=== PATIENT | female | born 1930 | race African-American/Black ===

== ENCOUNTER 2019-04-23 11:29 | Inpatient (IN) | payer OTHER ==
[2019-04-23] VITALS (18 sets, daily range): BP systolic 90–151; BP diastolic 14–97
[~2019-04-23] VITALS: Ht 157.5 cm; Wt 67.2 kg
[2019-04-23] MEDS ORDERED: SODIUM CHLORIDE 0.9% 500 ML IV ONE (12:19)
[2019-04-23 13:03] LABS: BASOPHILS % 0.3 % (0.0-2.0); LYMPHOCYTES % 8.7 % (20.0-50.0); MEAN CORPUSCULAR HEMOGLOBIN 17.3 pg (28.0-32.0); MEAN CORPUSCULAR VOLUME 60.9 fL (81.0-99.0); MEAN PLATELET VOLUME 8.6 fl (7.4-10.4); PLATELET 244 x1000/uL (130-400); RED BLOOD CELL COUNT 2.57 mill/uL (4.2-5.4); RED CELL DISTRIBUTION WIDTH 19.3 % (11.6-14.6)
[2019-04-23 13:07] LABS: CHLORIDE 117 mEq/L (98-107); INR 1.4; PROTHROMBIN TIME 14.1 sec (9.6-11.0)
[2019-04-23 13:12] LABS: HEMATOCRIT. 15.7 % (36.0-48.0); HEMOGLOBIN. 4.5 g/dL (12.0-16.0)
[2019-04-23 13:27] LABS: PLATELET ESTIMATE NORMAL
[2019-04-23] MEDS ORDERED: LORAZEPAM 2MG/ML CPJ IV ONE (13:30)
[2019-04-23] MEDS ORDERED: POTASSIUM CHLORIDE INJ 40 MEQ in DEXT 5% WATER 250 ML IV NR (14:30)
[2019-04-23 15:44] LABS: TOTAL IRON BINDING CAPACITY 286 ug/dL (250-450)
[2019-04-23] MEDS ORDERED: CLONIDINE 0.1MG TABLET PO PRN (16:00)
[2019-04-23] MEDS ORDERED: IPRATROPIUM/ALBUTEROL 0.5-3(2.5)MG/3ML NEB NEB PRN (16:00)
[2019-04-23] MEDS ORDERED: DEXTROSE 50% WATER 50ML SYRINGE IV PRN (16:00)
[2019-04-23] MEDS ORDERED: NITROGLYCERIN 0.4MG TABLET SL SL PRN (16:00)
[2019-04-23] MEDS ORDERED: ONDANSETRON HCL 4MG/2ML INJ IV PRN (16:00)
[2019-04-23] MEDS ORDERED: PANTOPRAZOLE SODIUM 40 MG/VIAL IV NR (16:00)
[2019-04-23] MEDS ORDERED: GUAIFENESIN 200MG/10ML SUGAR FREE UDC PO PRN (16:00)
[2019-04-23] MEDS ORDERED: DOCUSATE SODIUM 100MG CAPSULE PO PRN (16:00)
[2019-04-23] MEDS ORDERED: LORAZEPAM 0.5MG TABLET PO PRN (16:00)
[2019-04-23] MEDS ORDERED: MAGNESIUM/ALUMINUM HYDROXIDE/SIMETHICONE 30ML UDC PO PRN (16:00)
[2019-04-23] MEDS: DEXT 5%/LACTATED RINGERS 1,000 ML IV SCH (17:57)
[2019-04-23] MEDS: BLOOD SUGAR DIAGNOSTIC STRIP TEST SCH ×2 (17:57→21:00)
[2019-04-23] MEDS: INSULIN LISPRO 100 UNITS/ML SUBCUT SCH ×2 (17:58→23:30)
[2019-04-23] MEDS ORDERED: PANTOPRAZOLE 80 MG in SODIUM CHLORIDE 0.9% 100 ML IV SCH ×2 (18:00→23:30)
[2019-04-23] MEDS ORDERED: TRAMADOL 50MG TABLET PO PRN (18:00)
[2019-04-23] MEDS ORDERED: AZITHROMYCIN 500 MG in DEXT 5% WATER 250 ML IV SCH (18:00)
[2019-04-23] MEDS ORDERED: CEFTRIAXONE 1 G PREMIX 50 ML IV SCH (20:00)
[2019-04-23] MEDS ORDERED: ZOLPIDEM TARTRATE 5MG TABLET PO PRN (21:00)
[2019-04-23 21:12] LABS: T4 FREE 1.57 ng/dL (0.76-1.46)
[2019-04-23 21:26] LABS: FERRITIN 16 ng/mL (10-291)
[2019-04-23 21:36] LABS: VITAMIN B12 SERUM >2000 pg/mL pg/mL (211-911)
[2019-04-23 21:37] LABS: HEPATITIS B SURFACE ANTIGEN NEGATIVE
[2019-04-23 22:07] LABS: HEPATITIS A AB IGM NEGATIVE (NEGATIVE)
[2019-04-23] MEDS ORDERED: IOHEXOL-350 100 ML BOTTLE ONE (22:31)
[2019-04-23] MEDS ORDERED: KCL 20MEQ/100ML PREMIX 100 ML IV NR (23:00)
[2019-04-24] VITALS (62 sets, daily range): BP systolic 87–154; BP diastolic 42–104
[2019-04-24 03:57] LABS: BASOPHILS % 0.3 % (0.0-2.0); EOSINOPHILS % 1.1 % (0.0-5.0); HEMATOCRIT. 22.5 % (36.0-48.0); HEMOGLOBIN. 7.1 g/dL (12.0-16.0); LYMPHOCYTES % 7.4 % (20.0-50.0); MEAN CORPUSCULAR HEMOGLOBIN 21.6 pg (28.0-32.0); MEAN CORPUSCULAR VOLUME 68.3 fL (81.0-99.0); MEAN PLATELET VOLUME 9.2 fl (7.4-10.4); MONOCYTES % 9.6 % (2.0-8.0); NEUTROPHILS % 81.6 % (40.0-76.0); PLATELET 182 x1000/uL (130-400); RED BLOOD CELL COUNT 3.29 mill/uL (4.2-5.4); RED CELL DISTRIBUTION WIDTH 28.7 % (11.6-14.6)
[2019-04-24 04:42] LABS: CHLORIDE 120 mEq/L (98-107)
[2019-04-24 04:50] LABS: PHOSPHORUS 3.2 mg/dL (2.5-4.9)
[2019-04-24 04:52] LABS: CREATINE KINASE 534 IU/L (26-192)
[2019-04-24 04:54] LABS: CREATINE KINASE MB FRACTION 52.3 ng/mL (0.5-3.6)
[2019-04-24 06:03] LABS: HEMATOCRIT 24.3 % (36.0-48.0); HEMOGLOBIN 7.6 g/dL (12.0-16.0)
[2019-04-24 06:20] LABS: CREATINE KINASE MB FRACTION 57.5 ng/mL (0.5-3.6)
[2019-04-24] MEDS: DEXT 5%/LACTATED RINGERS 1,000 ML IV SCH (06:22)
[2019-04-24] MEDS: BLOOD SUGAR DIAGNOSTIC STRIP TEST SCH ×4 (08:19→21:19)
[2019-04-24] MEDS: INSULIN LISPRO 100 UNITS/ML SUBCUT SCH ×4 (08:20→21:00)
[2019-04-24] MEDS ORDERED: DIATR MEGLU/DIATRIZOATE SOLN 30ML PO SCH (10:00)
[2019-04-24] MEDS: PANTOPRAZOLE SODIUM 40 MG/VIAL IV SCH (10:06)
[2019-04-24] MEDS: FERROUS SULFATE 325MG TABLET PO SCH ×2 (13:20→17:31)
[2019-04-24] MEDS ORDERED: IOHEXOL-300 100 ML BOTTLE ONE ×2 (13:33→22:32)
[2019-04-24] MEDS ORDERED: LIDOCAINE HCL 1% 20ML VIAL (Pyxis) INJ ONE (13:33)
[2019-04-24] MEDS ORDERED: SODIUM BICARBONATE 4% (2.4MEQ) 5ML VIAL IV ONE (13:33)
[2019-04-24] MEDS ORDERED: IOHEXOL-300 50 ML BOTTLE IV ONE (13:39)
[2019-04-24 16:28] LABS: HEMATOCRIT 24.1 % (36.0-48.0); HEMOGLOBIN 7.6 g/dL (12.0-16.0)
[2019-04-24] MEDS: CEFTRIAXONE 1 G PREMIX 50 ML IV SCH (18:18)
[2019-04-24] MEDS: ATORVASTATIN CALCIUM 40MG TABLET PO SCH (21:01)
[2019-04-24] MEDS: AZITHROMYCIN 500 MG in DEXT 5% WATER 250 ML IV SCH (21:01)
[2019-04-24] MEDS: METOPROLOL TARTRATE 25MG TABLET PO SCH (21:02)
[2019-04-25] VITALS (82 sets, daily range): BP systolic 74–134; BP diastolic 20–78
[2019-04-25] MEDS: DEXT 5%/LACTATED RINGERS 1,000 ML IV SCH ×2 (01:48→09:23)
[2019-04-25] MEDS: BLOOD SUGAR DIAGNOSTIC STRIP TEST SCH ×4 (07:50→21:00)
[2019-04-25 08:14] LABS: HEMATOCRIT. 22.7 % (36.0-48.0); MEAN CORPUSCULAR HEMOGLOBIN 20.9 pg (28.0-32.0); MEAN CORPUSCULAR VOLUME 69.9 fL (81.0-99.0); MEAN PLATELET VOLUME 9.3 fl (7.4-10.4); PLATELET 169 x1000/uL (130-400); RED BLOOD CELL COUNT 3.25 mill/uL (4.2-5.4)
[2019-04-25 08:19] LABS: CHLORIDE 122 mEq/L (98-107)
[2019-04-25 08:23] LABS: HEMOGLOBIN. 6.8 g/dL (12.0-16.0)
[2019-04-25] MEDS: METOPROLOL TARTRATE 25MG TABLET PO SCH ×2 (09:00→20:39)
[2019-04-25] MEDS: PANTOPRAZOLE SODIUM 40 MG/VIAL IV SCH (09:23)
[2019-04-25] MEDS: FERROUS SULFATE 325MG TABLET PO SCH (09:23)
[2019-04-25] MEDS: INSULIN LISPRO 100 UNITS/ML SUBCUT SCH ×4 (09:37→21:00)
[2019-04-25] MEDS ORDERED: NON FORMULARY PATIENT HOME MED XX SCH (11:30)
[2019-04-25] MEDS ORDERED: IRON SUCROSE COMPLEX 100 MG/5 ML ML IV SCH (12:45)
[2019-04-25 13:19] LABS: NUCLEATED RED BLOOD CELLS 7 /100 WBC; PLATELET ESTIMATE NORMAL
[2019-04-25 15:23] LABS: CLARITY URINE CLEAR (CLEAR); COLOR URINE YELLOW (YELLOW); KETONES URINE NEGATIVE (NEGATIVE); LEUKOCYTE ESTERASE URINE TRACE (NEGATIVE); NITRITE URINE NEGATIVE (NEGATIVE); OCCULT BLOOD URINE 3+ (NEGATIVE); PROTEIN URINE 1+ (NEGATIVE); SPECIFIC GRAVITY URINE 1.046 (1.005-1.030)
[2019-04-25] MEDS: DEXT 5%/0.2% NACL 1,000 ML IV SCH ×2 (16:18→23:53)
[2019-04-25] MEDS: CEFTRIAXONE 1 G PREMIX 50 ML IV SCH (19:05)
[2019-04-25] MEDS ORDERED: LACTULOSE 20G/30ML UDC PO PRN (19:30)
[2019-04-25] MEDS ORDERED: LACTULOSE 20G/30ML UDC PO NR (19:30)
[2019-04-25] MEDS: AZITHROMYCIN 500 MG in DEXT 5% WATER 250 ML IV SCH (20:26)
[2019-04-25 20:35] LABS: HEMATOCRIT 30.6 % (36.0-48.0); HEMOGLOBIN 9.7 g/dL (12.0-16.0)
[2019-04-25] MEDS: ATORVASTATIN CALCIUM 40MG TABLET PO SCH (20:39)
[2019-04-25] MEDS: ACETAMINOPHEN 325MG TABLET PO PRN (20:42)
[2019-04-26] VITALS (56 sets, daily range): BP systolic 73–121; BP diastolic 38–85
[2019-04-26] MEDS: INSULIN LISPRO 100 UNITS/ML SUBCUT SCH ×3 (06:05→17:31)
[2019-04-26] MEDS: BLOOD SUGAR DIAGNOSTIC STRIP TEST SCH ×3 (06:05→17:31)
[2019-04-26 06:32] LABS: HEMOGLOBIN. 10.1 g/dL (12.0-16.0); MEAN CORPUSCULAR HEMOGLOBIN 23.7 pg (28.0-32.0); MEAN CORPUSCULAR VOLUME 74.8 fL (81.0-99.0); RED BLOOD CELL COUNT 4.28 mill/uL (4.2-5.4); RED CELL DISTRIBUTION WIDTH 29.6 % (11.6-14.6)
[2019-04-26] MEDS: PANTOPRAZOLE SODIUM 40 MG/VIAL IV SCH (08:24)
[2019-04-26] MEDS: IRON SUCROSE COMPLEX 100 MG/5 ML ML IV SCH (08:24)
[2019-04-26] MEDS: METOPROLOL TARTRATE 25MG TABLET PO SCH ×2 (08:25→21:00)
[2019-04-26 09:53] LABS: NUCLEATED RED BLOOD CELLS 8 /100 WBC
[2019-04-26 09:54] LABS: PLATELET ESTIMATE DECREASED
[2019-04-26 09:55] LABS: MEAN PLATELET VOLUME 8.8 fl (7.4-10.4)
[2019-04-26 09:56] LABS: PLATELET 108 x1000/uL (130-400)
[2019-04-26] MEDS: CEFTRIAXONE 1 G PREMIX 50 ML IV SCH (17:31)
[2019-04-26] MEDS: DEXT 5%/0.2% NACL 1,000 ML IV SCH (17:31)
[2019-04-26] MEDS: AZITHROMYCIN 500 MG in DEXT 5% WATER 250 ML IV SCH (20:36)
[2019-04-26] MEDS: ACETAMINOPHEN 325MG TABLET PO PRN (20:36)
[2019-04-26] MEDS: ATORVASTATIN CALCIUM 40MG TABLET PO SCH (20:36)
[2019-04-27] VITALS (52 sets, daily range): BP systolic 83–119; BP diastolic 15–79
[2019-04-27] MEDS: INSULIN LISPRO 100 UNITS/ML SUBCUT SCH ×4 (00:21→17:49)
[2019-04-27] MEDS: BLOOD SUGAR DIAGNOSTIC STRIP TEST SCH ×4 (00:22→17:48)
[2019-04-27] MEDS: DEXT 5%/0.2% NACL 1,000 ML IV SCH ×2 (06:10→19:36)
[2019-04-27] MEDS: METOPROLOL TARTRATE 25MG TABLET PO SCH ×2 (08:56→20:21)
[2019-04-27] MEDS: PANTOPRAZOLE SODIUM 40 MG/VIAL IV SCH (08:57)
[2019-04-27] MEDS: IRON SUCROSE COMPLEX 100 MG/5 ML ML IV SCH (08:57)
[2019-04-27 10:38] LABS: BG BASE EXCESS -3.6 mmol/L (-2.0-2.0); BG CARBOXYHEMOGLOBIN 0.3 % (0.5-1.5); BG DEOXYHEMOGLOBIN 1.6 % (0.0-5.0); BG FRACTION INSPIRED OXYGEN 36; BG HCO3 ACT 19.7 mmol/L (22.0-26.0); BG OXYGEN SATURATION 98.4 % (92.0-98.5); BG OXYHEMOGLOBIN 98.1 % (94.0-97.0); BG PH 7.436 (7.350-7.450); BG PO2 133.7 mmHg (75.0-100.0); BG SAMPLE SITE RIGHT RADIAL; BG TOTAL HEMOGLOBIN 10.3 g/dL (12.0-18.0); BG VENT MODE NASAL CANNULA
[2019-04-27] MEDS: CEFTRIAXONE 1 G PREMIX 50 ML IV SCH (18:47)
[2019-04-27] MEDS: AZITHROMYCIN 500 MG in DEXT 5% WATER 250 ML IV SCH (19:41)
[2019-04-27] MEDS: ATORVASTATIN CALCIUM 40MG TABLET PO SCH (20:00)
[2019-04-27 22:20] LABS: HEMATOCRIT 30.6 % (36.0-48.0); HEMOGLOBIN 9.7 g/dL (12.0-16.0)
[2019-04-28] VITALS (11 sets, daily range): BP systolic 74–110; BP diastolic 49–68
[2019-04-28] MEDS: INSULIN LISPRO 100 UNITS/ML SUBCUT SCH
[2019-04-28] MEDS: BLOOD SUGAR DIAGNOSTIC STRIP TEST SCH
== END 2019-04-28 03:30 | disposition short-term general hospital (02) | DRG 252 ==
LOC: ER 11:29 → CVICU 14:09 → EDBEDREQSVC 14:11 → EDBEDREQTM 14:11 → EDBEDREQ 14:11 → ENRESERV 15:46
PROVIDERS: ADMIT Internal Medicine; ATTEND Internal Medicine
PROC: 30233N1 Transfusion of Nonautologous Red Blood Cells into Peripheral Vein, Percutaneous Approach (ICD-10-PCS; principal; 2019-04-23)
PROC: 06H03DZ Insertion of Intraluminal Device into Inferior Vena Cava, Percutaneous Approach (ICD-10-PCS; 2019-04-24)
PROC: B5191ZZ Fluoroscopy of Inferior Vena Cava using Low Osmolar Contrast (ICD-10-PCS; 2019-04-24)
PROC: 06HC33Z Insertion of Infusion Device into Right Common Iliac Vein, Percutaneous Approach (ICD-10-PCS; 2019-04-24)
PROC: B54BZZA Ultrasonography of Right Lower Extremity Veins, Guidance (ICD-10-PCS; 2019-04-24)
DX: I21.3 ST elevation (STEMI) myocardial infarction of unspecified site (principal); J96.00 Acute respiratory failure, unspecified whether with hypoxia or hypercapnia; E43 Unspecified severe protein-calorie malnutrition; I26.99 Other pulmonary embolism without acute cor pulmonale; G92 Toxic encephalopathy; I82.411 Acute embolism and thrombosis of right femoral vein; D62 Acute posthemorrhagic anemia; E87.0 Hyperosmolality and hypernatremia; D68.9 Coagulation defect, unspecified; D68.59 Other primary thrombophilia; E87.1 Hypo-osmolality and hyponatremia; K92.2 Gastrointestinal hemorrhage, unspecified; I82.431 Acute embolism and thrombosis of right popliteal vein; I82.432 Acute embolism and thrombosis of left popliteal vein; D50.9 Iron deficiency anemia, unspecified; E11.65 Type 2 diabetes mellitus with hyperglycemia; E83.51 Hypocalcemia; E87.5 Hyperkalemia; E87.6 Hypokalemia; R74.0 Nonspecific elevation of levels of transaminase and lactic acid dehydrogenase [LDH]; I71.9 Aortic aneurysm of unspecified site, without rupture; F02.80 Dementia in other diseases classified elsewhere, unspecified severity, without behavioral disturbance, psychotic disturbance, mood disturbance, and anxiety; G30.9 Alzheimer's disease, unspecified; R13.10 Dysphagia, unspecified; Z78.1 Physical restraint status; Z79.4 Long term (current) use of insulin; Z86.73 Personal history of transient ischemic attack (TIA), and cerebral infarction without residual deficits; Z95.828 Presence of other vascular implants and grafts; Z68.27 Body mass index [BMI] 27.0-27.9, adult
CPT/HCPCS: 36415; 36600; 37191; 70551; 71045; 71275; 74177; 76700; 76937; 80048; 80053; 80061; 80076; 81003; 82140; 82248; 82270; 82375; 82550; 82553; 82607; 82728; 82746; 82805; 82962; 83036; 83540; 83550; 83605; 83735; 83880; 84100; 84295; 84439; 84443; 84484; 85014; 85018; 85025; 86705; 86709; 86803; 86850; 86900; 86920; 87340; 87804; 92610; 93005; 93306; 93970; 94640; A6261; C1725; C1769; C1880; C9113; J0456; J0696; J1644; J1815; J2060; J3480; J3490; J7030; J7040; J7050; J7060; P9016; Q9963; Q9967; A4315